=== PATIENT | female | born 1990 | race Caucasian/White ===

== ENCOUNTER 2016-10-17 17:50 | Emergency (ER) | payer BC ==
[2016-10-17 18:55] VITALS: BP 115/76
--- NOTE | 2016-10-17 19:12 | UC ---
Complaint Female HPI - HPI Summary HPI Summary: compalint of burning with urination that started today increased frequency and urgency of urination drinking cranberry juice and fluids took some azo BID with some relief denies fever , abdominal pain, back pain - History Of Current Complaint Chief Complaint: UCGU Stated Complaint: URINARY Time Seen by Provider: 10/17/16 19:04 Hx Last Menstrual Period: on Seasonique - Allergies/Home Medications Allergies/Adverse Reactions: Allergies Allergy/AdvReac Type Severity Reaction Status Date / Time No Known Allergies Allergy Verified 10/17/16 18:55 PMH/Surg Hx/FS Hx/Imm Hx Previously Healthy: Yes Endocrine History Of: Denies: Diabetes, Thyroid Disease Cardiovascular History Of: Denies: Cardiac Disorders, Hypertension Respiratory History Of: Reports: Asthma - excercise induced asthma Denies: COPD GI/ History Of: Denies: Ulcer - Surgical History Surgical History: Yes Surgery Procedure, Year, and Place: fatty tumor removed from leg - Family History Known Family History: Positive: None Negative: Cardiac Disease, Hypertension, Diabetes - Social History Occupation: Employed Full-time Alcohol Use: Occasionally Substance Use Type: None Smoking Status (MU): Never Smoked Tobacco - Immunization History Most Recent Influenza Vaccination: none Most Recent Tetanus Shot: unknown Hx Tetanus, Diphtheria Vaccination: Yes - is going to check with Dr. Rueda tomorrow to assure it is up to date Vaccination Up to Date: Yes Review of Systems Constitutional: Negative Skin: Negative Eyes: Negative ENT: Negative Respiratory: Negative Cardiovascular: Negative Gastrointestinal: Negative Genitourinary: Dysuria, Frequency, Urgency Motor: Negative Neurovascular: Negative Musculoskeletal: Negative Neurological: Negative Psychological: Negative All Other Systems Reviewed And Are Negative: Yes Physical Exam Triage Information Reviewed: Yes Appearance: No Pain Distress, Well-Nourished Vital Signs: Initial Vital Signs Temp 98.8 F 10/17/16 18:50 Pulse 76 10/17/16 18:50 Resp 16 10/17/16 18:50 BP 115/76 10/17/16 18:50 Pulse Ox 100 10/17/16 18:50 Vital Signs Reviewed: Yes Eyes: Positive: Conjunctiva Clear ENT: Positive: Pharynx normal, TMs normal Neck: Positive: No Lymphadenopathy Respiratory: Positive: Lungs clear, Normal breath sounds, No respiratory distress Cardiovascular: Positive: RRR, No Murmur Abdomen Description: Positive: Nontender, No Organomegaly, Soft. Negative: CVA Tenderness (R), CVA Tenderness (L) Bowel Sounds: Positive: Present Musculoskeletal: Positive: No Edema Neurological: Positive: Alert Psychological Exam: Normal Skin Exam: Normal Complaint Female Dx - Differential Dx/Diagnosis Differential Diagnosis/HQI/PQRI: Ureteral Stone, Urinary Tract Infection Provider Diagnoses: UTI Discharge - Discharge Plan Condition: Stable Disposition: HOME Prescriptions: Nitrofurantoin Monohyd Macro [Macrobid] 100 mg PO BID #10 cap Patient Education Materials: Urinary Tract Infection in Women (ED) Referrals: Rik Rueda MD [Primary Care Provider] - Additional Instructions: Please take antibiotic as directed. Increase fluids and rest Take acetaminophen or ibuprofen for fever or pain Please review your discharge instructions. If your symptoms do not improve please call your primary care provider or return to urgent care
== END 2016-10-17 19:20 | disposition home or self-care (01) ==
LOC: UCCORT 17:50
DX: N39.0 Urinary tract infection, site not specified (principal)
CPT/HCPCS: 87077; 87086; 87186; 99212; G0463

== ENCOUNTER 2017-03-14 07:02 | Emergency (ER) | payer BC ==
--- NOTE | 2017-03-14 07:19 | UC ---
Complaint Female HPI - HPI Summary HPI Summary: Dysuria and frequency since yesterday mid day. NO fever, vomiting or flank pain. She has taken azo with some relief. - History Of Current Complaint Stated Complaint: URINARY COMPLAINT Time Seen by Provider: 03/14/17 07:09 Hx Last Menstrual Period: on Seasonique Onset/Duration: Gradual Onset Timing: Constant Severity Initially: Mild Severity Currently: Moderate Aggravating Factor(s): Urination Alleviating Factor(s): Meds Associated Signs And Symptoms: Positive: Negative - Allergies/Home Medications Allergies/Adverse Reactions: Allergies Allergy/AdvReac Type Severity Reaction Status Date / Time No Known Allergies Allergy Verified 10/17/16 18:55 PMH/Surg Hx/FS Hx/Imm Hx Previously Healthy: Yes - Surgical History Surgical History: Yes Surgery Procedure, Year, and Place: fatty tumor removed from leg - Family History Known Family History: Positive: None Negative: Cardiac Disease, Hypertension, Diabetes - Social History Alcohol Use: Occasionally Substance Use Type: None Smoking Status (MU): Never Smoked Tobacco - Immunization History Most Recent Influenza Vaccination: none Most Recent Tetanus Shot: unknown Hx Tetanus, Diphtheria Vaccination: Yes - is going to check with Dr. Rueda tomorrow to assure it is up to date Vaccination Up to Date: Yes Review of Systems All Other Systems Reviewed And Are Negative: Yes Physical Exam Triage Information Reviewed: Yes Appearance: Well-Appearing, No Pain Distress, Well-Nourished Vital Signs Reviewed: Yes Eye Exam: Normal ENT Exam: Normal Neck exam: Normal Respiratory Exam: Normal Cardiovascular Exam: Normal Abdominal Exam: Normal Abdomen Description: Positive: Nontender, No Organomegaly, Soft. Negative: CVA Tenderness (R), CVA Tenderness (L) Musculoskeletal Exam: Normal Neurological Exam: Normal Psychological Exam: Normal Complaint Female Dx - Differential Dx/Diagnosis Differential Diagnosis/HQI/PQRI: Appendicitis, Cervicitis, Endometriosis, Ovarian Torsion, Pelvic Inflammatory Disease, , Renal Colic, Retained Foreign Body, Sexually Transmitted Disease, Tubo-ovarian Abscess, Ureteral Stone , Urinary Tract Infection Provider Diagnoses: UTI. dysuria Discharge - Discharge Plan Condition: Good Disposition: HOME Prescriptions: Nitrofurantoin Monohyd Macro [Macrobid] 100 mg PO BID #20 cap Patient Education Materials: Dysuria (ED), Urinary Tract Infection in Women (ED ) Referrals: Rik Rueda MD [Primary Care Provider] - If Needed
[2017-03-14 07:24] VITALS: BP 117/64
--- NOTE | 2017-03-16 14:47 | UC ---
Progress - Progress Note Progress Note: 26 F on macrobid x 10 days, not a true UTI by culture. May stop abx. If still with sxs, follow up with Dr. Rueda.
== END 2017-03-14 07:22 | disposition home or self-care (01) ==
LOC: UCCORT 07:02
DX: N39.0 Urinary tract infection, site not specified (principal); R30.0 Dysuria
CPT/HCPCS: 87086; 99212; G0463